=== PATIENT | male | born 1985 | race Two or more races ===

== ENCOUNTER 2017-04-07 15:41 | Emergency (ER) | payer MEDICAID ==
[~2017-04-07] VITALS: Ht 172.7 cm; Wt 81.6 kg
--- NOTE | 2017-04-07 15:55 | NUR ---
AAOX3, CAME TO ER FOR R ELBOW DISLOCATION S/P FELL OFF THE 2FT TALL LADDER. -KO. RR IS EVEN AND UNLABORED WITH NAD NOTED. SKIN IS WARM AND DRY. AWAITING MD FOR EVAL.
[2017-04-07] MEDS ORDERED: MORPHINE SULFATE INJ 4 MG/ML DISP.SYRIN ONE (16:08)
[2017-04-07] MEDS ORDERED: ONDANSETRON HCL/PF 4 MG/2 ML VIAL ONE (16:08)
[2017-04-07] MEDS ORDERED: PROPOFOL 20 ML IV ONE (16:26)
[2017-04-07] MEDS ORDERED: MORPHINE SULFATE INJ 2 MG/ML DISP.SYRIN IV ONE (16:30)
[2017-04-07] MEDS ORDERED: IV NS 0.9% 500 ML BAG IV ONE (16:30)
[2017-04-07] MEDS ORDERED: ONDANSETRON HCL/PF 4 MG/2 ML VIAL IVP ONE (16:30)
--- NOTE | 2017-04-07 16:35 | NUR ---
VERBALLY ORDERED BY DR CARRERA PROPOFOL 100MG IV FOR R ELBOW CLOSE REDUCTION ON MODERATE SEDATION.
--- NOTE | 2017-04-07 16:49 | NUR ---
XRAY IN PROGRESS AT BS FOR POST REDUCTION
--- NOTE | 2017-04-07 18:07 | NUR ---
IV removed. Catheter intact and site benign. Pressure and 4x4 applied to site. No bleeding noted.Patient discharged to home in stable condition. Written and verbal after care instructions given. Patient verbalizes understanding of instruction.
[2017-04-07 18:09] VITALS: BP 138/75
== END 2017-04-07 18:11 | disposition home or self-care (01) ==
LOC: ER 15:43
DX: S53.104A Unspecified dislocation of right ulnohumeral joint, initial encounter (principal); F17.200 Nicotine dependence, unspecified, uncomplicated; W11.XXXA Fall on and from ladder, initial encounter; Y93.89 Activity, other specified; Y92.89 Other specified places as the place of occurrence of the external cause; Y99.9 Unspecified external cause status
CPT/HCPCS: 24600; 73070 ×2; 96361; 96374; 99152; 99285; A4606; J2270; J2405; J2704; J7040; Z7610